=== PATIENT | male | born 1990 | race Caucasian/White ===

== ENCOUNTER 2021-04-30 14:15 | Outpatient (CLI) | payer MEDICAID, OTHER ==
--- NOTE | 2021-04-30 16:55 | XRAY Report ---
PROCEDURE: Lumbar Spine 2 View INDICATIONS: STRAIN OF MUSCLE, FASCIA, AND TENDON OF LOWER BACK TECHNIQUE: 2 views of the lumbar spine were acquired. COMPARISON: None. FINDINGS: There are 5 nonrib-bearing lumbar type vertebral bodies of normal height and alignment. No pars defec t. Mild disc height loss at L3-L4 and L4-L5. No degenerative endplate changes. No significant facet h ypertrophy identified. IMPRESSION: Minimal degenerative changes at L4-L5 and L3-L4. Reviewed by: Joe Arnold MD on 04/30/2021 4:54 PM PDT Approved by: Joe Arnold MD on 04/30/2021 4:54 PM PDT Station ID: [id number]
== END 2021-04-30 23:59 | disposition home or self-care (01) ==
LOC: DI.N 14:15
PROVIDERS: ATTEND Physician Assistant Medical
DX: S39.012A Strain of muscle, fascia and tendon of lower back, initial encounter (principal); M51.36 Other intervertebral disc degeneration, lumbar region